=== PATIENT | female | born 1965 | race African-American/Black ===

== ENCOUNTER 2020-09-19 14:55 | Emergency (ER) | payer SELFPAY | END 2020-09-19 15:23 | disposition left against medical advice (07) | LOC: NAV ERS 14:55 | DX: R07.9 Chest pain, unspecified (principal); E11.9 Type 2 diabetes mellitus without complications; I10 Essential (primary) hypertension; F17.210 Nicotine dependence, cigarettes, uncomplicated; Z79.84 Long term (current) use of oral hypoglycemic drugs; Z79.899 Other long term (current) drug therapy | CPT/HCPCS: 93005 ==

== ENCOUNTER 2020-11-05 12:00 | Emergency (ER) | payer SELFPAY ==
[2020-11-05] MEDS ORDERED: Sodium Chloride 0.9% 1,000 ML ONE (12:54)
[2020-11-05] MEDS ORDERED: Ketorolac Tromethamine 30 MG/ML VIAL ONE (12:54)
[2020-11-05 13:13] LABS: Bilirubin Negative (Negative); Blood, Urine Negative (Negative); Clarity Clear (Clear); Glucose, Urine (Dipstick) Negative (Negative); Ketone, Urine Negative (Negative); Leukocyte Trace (Negative); Nitrite Negative (Negative); Protein, Urine (Dipstick) 100 mg/dL (Neg-Trace); pH, Urine 6.5 (5.0-9.0)
[2020-11-05] MEDS ORDERED: Lisinopril 20 MG TAB ONE (13:22)
[2020-11-05 13:25] LABS: #Basophils 0.2 thou/uL (0.0-0.2); #Lymphocytes 1.8 thou/uL (1.20-3.40); #Monocytes 0.5 thou/uL (0.11-0.59); #Neutrophils 5.2 thou/uL (1.40-6.50); %Basophils 2.2 % (0.0-1.0); %Eosinophils 0.2 % (0.0-10.0); %Lymphocytes 23.8 % (21.0-51.0); %Monocytes 6.4 % (0.0-10.0); %Neutrophils 67.4 % (42.0-75.0); Hemoglobin 13.4 g/dL (12.0-16.0); Mean Corpuscular HGB CONC 30.7 g/dL (32.0-36.0); Mean Corpuscular Hemoglobin 26.3 pg (27.0-31.0); Mean Corpuscular Volume 85.8 fL (78.0-98.0); Mean Platelet Volume 5.6 fL (7.4-10.4); Platelet Count 345 thou/uL (130-400); RBC Distribution Width 13.3 % (11.5-14.5); Red Blood Cell (RBC) Count 5.08 mill/uL (4.20-5.40); White Blood Cell (WBC) Count 7.7 thou/uL (4.8-10.8)
[2020-11-05 13:26] LABS: ALT (SGPT) 13 U/L (8-55); AST (SGOT) 18 U/L (5-34); Albumin 3.8 g/dL (3.5-5.0); Alkaline Phosphatase 76 U/L (40-110); Anion Gap 16 mmol/L (10-20); BUN (Urea Nitrogen) 13 mg/dL (9.8-20.1); Bilirubin, Total 0.3 mg/dL (0.2-1.2); Calc. Creatinine Clearance 0 mL/min (70-130); Calcium 9.2 mg/dL (7.8-10.44); Carbon Dioxide 23 mmol/L (22-29); Chloride 106 mmol/L (98-107); Globulin 4.2 g/dL (2.4-3.5); Glucose 157 mg/dL (70-105); Lipase 36 U/L (8-78); Potassium 4.1 mmol/L (3.5-5.1); Sodium 141 mmol/L (136-145)
[2020-11-05 13:27] LABS: Specific Gravity, Urine Greater/Equal 1.030 (1.005-1.030); Squamous Epithelial 0-3 HPF (0-3)
[2020-11-05 13:28] LABS: Bacteria/HPF Rare-Few HPF (None Seen)
--- NOTE | 2020-11-05 13:39 | CT ---
CT ABDOMEN AND PELVIS WITHOUT CONTRAST: HISTORY: Abdominal pain. COMPARISON: None. FINDINGS: The lung bases have some mild atelectatic changes. No pericardial effusion. No hydroureteral nephrosis or nephroureterolithiasis. No secondary evidence of a recently passed sto ne. Adrenal gland is unremarkable. No acute osseous abnormality. No suspicious osteolytic or osteoblastic lesions. The appendix is visualized and is normal. Likely cholelithiasis, radiolucent. No pericholecystic in flammation. No dilated loops of large or small bowel. No retroperitoneal or periaortic adenopathy. Mild calcifi cations of the aorta. IMPRESSION: 1. No nephroureteral lithiasis or hydroureteral nephrosis. No secondary evidence of a recently pass ed stone. 2. Normal appendix. 3. No acute inflammatory process within the abdomen or pelvis. 4. Cholelithiasis without cholecystitis. 5. Very small fat-containing umbilical hernia. POS: HOME
[2020-11-06 16:45] LABS: SARS-CoV-2 MS2 Positive; SARS-CoV-2 N Gene Negative; SARS-CoV-2 S Gene Negative; SARS-CoV-2 by NAA Not Detected (NotDetected); SARS-CoV-2 orf1ab Negative
== END 2020-11-05 14:43 | disposition home or self-care (01) ==
LOC: NAV ERS 12:00
DX: N39.0 Urinary tract infection, site not specified (principal); R09.81 Nasal congestion; Z20.822 Contact with and (suspected) exposure to COVID-19; E11.9 Type 2 diabetes mellitus without complications; I10 Essential (primary) hypertension; F17.210 Nicotine dependence, cigarettes, uncomplicated; Z79.899 Other long term (current) drug therapy
CPT/HCPCS: 74176; 80053; 81003; 81015; 83690; 85025; 87635; 96374; J1885; J7050; U0003

== ENCOUNTER 2021-10-25 19:53 | Emergency (ER) | payer SELFPAY ==
[2021-10-27 12:17] LABS: SARS-CoV-2 PCR by NAA DETECTED (NotDetected)
== END 2021-10-25 20:34 | disposition home or self-care (01) ==
LOC: NAV ERS 19:53
DX: U07.1 COVID-19 (principal); I10 Essential (primary) hypertension; E11.9 Type 2 diabetes mellitus without complications; F17.210 Nicotine dependence, cigarettes, uncomplicated
CPT/HCPCS: 71045; U0003; U0005

== ENCOUNTER 2022-02-15 18:52 | Emergency (ER) | payer MEDICARE, OTHER, SELFPAY ==
[2022-02-15 19:44] LABS: #Basophils 0.1 thou/uL (0.0-0.2); #Lymphocytes 1.9 thou/uL (1.20-3.40); #Monocytes 0.5 thou/uL (0.11-0.59); #Neutrophils 6.3 thou/uL (1.40-6.50); %Basophils 1.2 % (0.0-1.0); %Eosinophils 0.1 % (0.0-10.0); %Lymphocytes 21.3 % (21.0-51.0); %Monocytes 5.9 % (0.0-10.0); %Neutrophils 71.5 % (42.0-75.0); Hemoglobin 13.1 g/dL (12.0-16.0); Mean Corpuscular HGB CONC 29.2 g/dL (32.0-36.0); Mean Platelet Volume 7.2 fL (7.4-10.4); Platelet Count 302 thou/uL (130-400); RBC Distribution Width 14.2 % (11.5-14.5); Red Blood Cell (RBC) Count 5.04 mill/uL (4.20-5.40); White Blood Cell (WBC) Count 8.8 thou/uL (4.8-10.8)
[2022-02-15] MEDS ORDERED: Pantoprazole 40 MG VIAL ONE (19:50)
[2022-02-15] MEDS ORDERED: Ondansetron PF 4 MG/2 ML Vial ONE (19:50)
[2022-02-15] MEDS ORDERED: Mag-Al Plus 1200 MG/1200 MG/120 MG/30 ML UDCUP ONE (19:51)
[2022-02-15] MEDS ORDERED: Lidocaine Viscous Sol 2% 15 ml UD Cup ONE (19:51)
[2022-02-15 20:05] LABS: Bilirubin Negative (Negative); Blood, Urine Trace (Negative); Clarity Clear (Clear); Glucose, Urine (Dipstick) >=1000 mg/dL (Negative); Ketone, Urine Negative (Negative); Leukocyte Negative (Negative); Nitrite Negative (Negative); Protein, Urine (Dipstick) Negative (Neg-Trace)
[2022-02-15 20:19] LABS: ALT (SGPT) 15 U/L (8-55); AST (SGOT) 16 U/L (5-34); Albumin 3.7 g/dL (3.5-5.0); Alkaline Phosphatase 100 U/L (40-110); Anion Gap 14 mmol/L (10-20); BUN (Urea Nitrogen) 13 mg/dL (9.8-20.1); Bilirubin, Total 0.3 mg/dL (0.2-1.2); Calc. Creatinine Clearance 0 mL/min (70-130); Calcium 9.6 mg/dL (7.8-10.44); Carbon Dioxide 24 mmol/L (22-29); Chloride 100 mmol/L (98-107); Glucose 408 mg/dL (70-105); Lipase 423 U/L (8-78); Potassium 3.7 mmol/L (3.5-5.1); Protein, Total 7.7 g/dL (6.0-8.3); Sodium 134 mmol/L (136-145)
[2022-02-15 20:20] LABS: RBC/HPF 0-3 HPF (0-3); Trichomonas/HPF 2+ HPF (None Seen); WBC/HPF 0-3 HPF (0-3)
[2022-02-15] MEDS ORDERED: metroNIDAZOLE 500 MG TAB ONE (20:41)
[2022-02-15 20:54] LABS: CKMB 1.5 ng/mL (0-6.6)
== END 2022-02-15 20:40 | disposition home or self-care (01) ==
LOC: NAV ERS 18:52
DX: K85.90 Acute pancreatitis without necrosis or infection, unspecified (principal); E11.9 Type 2 diabetes mellitus without complications; I10 Essential (primary) hypertension; F17.210 Nicotine dependence, cigarettes, uncomplicated; Z79.899 Other long term (current) drug therapy; Z79.84 Long term (current) use of oral hypoglycemic drugs
CPT/HCPCS: 71045; 80053; 81003; 81015; 82553; 83605; 83690; 84484; 85025; 93005; 96374; 96375; C9113; J2405

== ENCOUNTER 2024-08-11 13:29 | Emergency (ER) | payer MEDICAID, OTHER, SELFPAY ==
[2024-08-11] MEDS ORDERED: Acetaminophen 500 MG TAB ONE (13:59)
== END 2024-08-11 14:34 | disposition home or self-care (01) ==
LOC: NAV ERS 13:29
DX: E11.52 Type 2 diabetes mellitus with diabetic peripheral angiopathy with gangrene (principal); I96 Gangrene, not elsewhere classified; I10 Essential (primary) hypertension; F17.210 Nicotine dependence, cigarettes, uncomplicated; Z79.4 Long term (current) use of insulin; Z79.84 Long term (current) use of oral hypoglycemic drugs; Z79.899 Other long term (current) drug therapy
CPT/HCPCS: 99283

== ENCOUNTER 2024-08-31 18:30 | Emergency (ER) | payer OTHER | END 2024-08-31 19:25 | disposition home or self-care (01) | LOC: NAV ERS 18:30 | DX: E11.9 Type 2 diabetes mellitus without complications (principal); T81.49XA Infection following a procedure, other surgical site, initial encounter; I10 Essential (primary) hypertension; Z79.4 Long term (current) use of insulin; Z79.84 Long term (current) use of oral hypoglycemic drugs | CPT/HCPCS: 90471 ==

== ENCOUNTER 2024-11-03 09:59 | Emergency (ER) | payer OTHER | END 2024-11-03 10:13 | LOC: NAV ERS 09:59 | DX: Z53.21 Procedure and treatment not carried out due to patient leaving prior to being seen by health care provider (principal) ==